=== PATIENT | female | born 1945 | race Caucasian/White ===

== ENCOUNTER 2016-09-12 19:23 | Inpatient (IN) | payer MEDICARE, OTHER ==
[~2016-09-12] VITALS: Ht 160 cm; Wt 77.6 kg
--- NOTE | 2016-09-12 19:23 | NUR ---
Patient was BIBA and taken to bed 04 via gurney per EMS.
[2016-09-12] MEDS ORDERED: NACL 0.9% 1,000 ML IV ONE ×2 (19:29→21:15)
--- NOTE | 2016-09-12 19:30 | NUR ---
71/F biba from [facility] for evaluation of low hemoglobin. Per report from facility, hemoglobin was 6.7. Pt denies any pain at this time. AOX4, clear speech. Pt noted with a colostomy back with dark brown/black stool. Denies N/V/D. VSS.
[2016-09-12 19:32] VITALS: BP 112/63
--- NOTE | 2016-09-12 19:50 | NUR ---
X-Ray at bedside.
[2016-09-12 20:04] LABS: BASOPHILS # (AUTO) 0.2 K/uL (0.00-0.22); BASOPHILS % (AUTO) 3.2 % (0.0-2.0); EOSINOPHILS # (AUTO) 0.2 K/uL (0-0.4); EOSINOPHILS % (AUTO) 2.2 % (0.0-4.0); HEMOGLOBIN 8.2 g/dL (12.0-16.0); LYMPHOCYTES % (AUTO) 25.4 % (20.5-51.1); MEAN CORPUSCULAR HEMOGLOBIN 40 pg (27-31); MEAN CORPUSCULAR HGB CONC 38 g/dL (33-37); MEAN CORPUSCULAR VOLUME 106 fL (80-94); MONOCYTES # (AUTO) 0.6 K/uL (0.8-1.0); MONOCYTES % (AUTO) 7.4 % (1.7-9.3); NEUTROPHILS # (AUTO) 4.7 K/uL (1.8-7.7); NEUTROPHILS % (AUTO) 61.8 % (42.2-75.2); PLATELET COUNT (AUTO) 352 K/uL (140-450); RED BLOOD CELL COUNT(AUTO) 2.07 MIL/uL (4.20-5.40); RED CELL DISTRIBUTION WIDTH 15.3 % (11.6-13.7); WHITE BLOOD COUNT (AUTO) 7.7 K/uL (4.8-10.8)
--- NOTE | 2016-09-12 20:11 | NUR ---
Pt refused to have a urinary catheter inserted at this time. Dr. Agarwal made aware.
--- NOTE | 2016-09-12 20:19 | NUR ---
Dr. Agarwal at bedside for a hemocult testing of stool.
[2016-09-12 20:25] LABS: ALBUMIN 3.2 g/dL (3.4-5.0); ANION GAP 9.4 (8-16); CALCIUM 9.1 mg/dL (8.5-10.1); CARBON DIOXIDE 30.5 mmol/L (21-32); POTASSIUM 3.9 mmol/L (3.5-5.1); TOTAL BILIRUBIN 0.9 mg/dL (0.0-1.0); TOTAL PROTEIN, SERUM 6.5 g/dL (6.4-8.2)
[2016-09-12 20:26] LABS: INR 1.2 (0.8-1.2); PROTHROMBIN TIME 11.6 secs (10.8-13.4)
--- NOTE | 2016-09-12 20:29 | NUR ---
Per Lab, Lactic acid is 2.5; I made this known to Dr. Agarwal.
[2016-09-12 20:30] LABS: LACTIC ACID 2.5 mmol/L (0.4-2.0)
[2016-09-12] MEDS ORDERED: FERR325E14 PO (20:38)
[2016-09-12] MEDS ORDERED: ASCO500T45 PO (20:38)
[2016-09-12] MEDS ORDERED: VALS320T2 PO (20:38)
[2016-09-12] MEDS ORDERED: MAGN400S60 PO (20:38)
[2016-09-12] MEDS ORDERED: METF500T PO (20:38)
[2016-09-12] MEDS ORDERED: SIMV20TA1 PO (20:38)
[2016-09-12] MEDS ORDERED: RIVA20TA PO (20:38)
--- NOTE | 2016-09-12 20:40 | NUR ---
Patient appears to be resting comfortably in bed. Vital Signs within normal limits. Respirations even and unlabored. Pt provided with water. All needs met. Pt calm and no distress noted.
--- NOTE | 2016-09-12 20:57 | NUR ---
RECEIVED REPORT FROM [facility] FOR TRANSFER OF CARE.
--- NOTE | 2016-09-12 21:00 | NUR ---
Pt w/c assisted to bathroom. Urine hat collection device place. No urine was collected. Dr. Agarwal notified.
[2016-09-12] MEDS ORDERED: ONDANSETRON 4 MG/2 ML VIAL IVP PRN (21:10)
[2016-09-12] MEDS ORDERED: DOCUSATE SODIUM 100 MG GELCAP PO PRN (21:10)
[2016-09-12] MEDS ORDERED: ACETAMINOPHEN 325 MG TAB PO PRN (21:10)
[2016-09-12] MEDS ORDERED: DEXTROSE 50% 50 ML SYR IVP PRN (21:15)
[2016-09-12] MEDS ORDERED: INSULIN LISPRO SLIDING SCALE 100 UNITS/ML VIAL SUBQ PRN (21:15)
[2016-09-12] MEDS ORDERED: DEXT 5% / NACL 0.9% 500 ML IV ONE (21:20)
--- NOTE | 2016-09-12 21:22 | NUR ---
Patient will be admitted to care of Dr. Bell. Admited to TELE. Will go to room 124-A. Belongings list completed. Report to Denise DYKES.
[2016-09-12 21:55] VITALS: BP 111/51
--- NOTE | 2016-09-12 21:55 | NUR ---
Admitted from ER TO TELEMETRY UNIT, with chief complaint of LOW HEMOGLOBIN, 6.7 PER [facility] REPORT, 71 y/o ,Female, Cooperative, AWAKE, A/OX4. LUNGS CLEAR ON BILATERAL AUSCULTATION. COLOSTOMY BAG IN THE LEFT SIDE OF ABDOMEN DRAINING MINIMAL AMOUNT OF BLACKISH LIQUID STOOLS. WITH SCAR NOTED FROM HEALED ABDOMINAL WOUND, SLIGHT REDNESS NOTED AROUND STOMA OF COLOSTOMY BAG. DENIES PAIN 0/10. SINUS RHYTHM ON TELE MONITOR. oriented to call light, bed, phone,television, bathroom, smoking policy, visiting hours, procedures, ID bracelet on. Belongings list checked.
--- NOTE | 2016-09-12 22:00 | NUR ---
Patient's Plan of Care was discussed and reviewed with COMPLIANCE PARALEGAL: LADARIUS PARKER
[2016-09-12 22:06] LABS: CHOL/HDL RATIO 2.5 (1-4.5)
[2016-09-12 22:21] LABS: BILIRUBIN,DIRECT 0.2 mg/dL (0.0-0.3); FREE T4 (FREE THYROXINE) 0.94 ng/dL (0.76-1.46); MAGNESIUM 2.2 mg/dL (1.8-2.4); THYROID STIMULATING HORMONE 1.34 uIU/mL (0.34-3.76)
[2016-09-12 23:07] LABS: APPEARANCE,URINE CLEAR (CLEAR); BILIRUBIN,URINE NEGATIVE (NEGATIVE); BLOOD, URINE NEGATIVE (NEGATIVE); LEUKOCYTE ESTERASE ,URINE NEGATIVE (NEGATIVE); NITRITE, URINE NEGATIVE (NEGATIVE); PROTEIN,URINE NEGATIVE (NEGATIVE); UGLUCOSE NEGATIVE (NEGATIVE); UROBILINOGEN,URINE 0.2 EU/dL (0.2 - 1)
[2016-09-12 23:09] LABS: COLOR,URINE STRAW (YELLOW)
[2016-09-12 23:12] LABS: BACTERIA,URINE 2+ /HPF (None Seen); RBC,URINE 0-3 /HPF (0-5); SQUAMOUS EPITHELIAL CELL,UR 0-3 /LPF (0-3 (FEW))
--- NOTE | 2016-09-12 23:30 | NUR ---
US TECH CAME DID AND DID US OF BILATERAL LOWER EXTREMITIES TO CHECK FOR DVT.
[2016-09-13] VITALS: BP 110/50
--- NOTE | 2016-09-13 01:04 | NUR ---
UA SPECIMEN OBTAINED BY JANIA SABILLON FOR URINE TEST, SENT TO LAB.
[2016-09-13 04:00] VITALS: BP 109/58
--- NOTE | 2016-09-13 05:30 | NUR ---
STILL SLEEPING COMFORTABLY IN BED.
--- NOTE | 2016-09-13 07:00 | NUR ---
CONDITION REMAIN STABLE. STILL NPO EXCEPT MEDS. WILL ENDORSE TO AM NURSE FOR CONTINUITY OF CARE.
--- NOTE | 2016-09-13 07:25 | NUR ---
ENDORSED TO JANIA SUÁREZ FOR CONTINUITY OF CARE.
--- NOTE | 2016-09-13 07:25 | NUR ---
RECEIVED PT IN BED. ASLEEP, AROUSABLE TO VOICE. NO SOB NOTED. DENIES ANY PAIN OR DISCOMFORT AT THIS TIME. ALERT ORIENTEDX4. POSITIVE BOWEL SOUNDS NOTED ON FOUR QUADRANTS. PT AMBULATORY WITH STAND BY ASSIST. PT HAS A COLOSTOMY IN PLACE. SKIN INTACT. SAFETY PRECAUTION IN PLACE. CALL LIGHT WITHIN REACH.
[2016-09-13] MEDS: BLOOD GLUCOSE MONITORING 1 DEV DEV FS SCH ×4 (07:35→21:58)
[2016-09-13 08:00] VITALS: BP 109/59
[2016-09-13] MEDS: VALSARTAN 80 MG TAB PO SCH (09:00)
[2016-09-13] MEDS: ASCORBIC ACID 500 MG TAB PO SCH ×2 (09:01→20:38)
[2016-09-13] MEDS: MAGNESIUM HYDROXIDE 2400 MG/30 ML UDC PO SCH ×2 (09:01→20:37)
[2016-09-13] MEDS: PANTOPRAZOLE 40 MG TABEC PO SCH (09:01)
[2016-09-13] MEDS: FERROUS SULFATE 325 MG TABEC PO SCH ×3 (09:01→17:44)
--- NOTE | 2016-09-13 09:09 | NUR ---
PATIENT HAS BEEN SCREENED AND CATEGORIZED MODERATE NUTRITION RISK. PATIENT WILL BE SEEN WITHIN 3-5 DAYS OF ADMISSION. 09/15/16-09/17/[address]
--- NOTE | 2016-09-13 09:11 | NUR ---
Review faxed to [facility] at [phone], Claudia at [phone]
--- NOTE | 2016-09-13 09:30 | NUR ---
DR. FLOR CAME TO SEE PT WITH ORDERS MADE AND CARRIED OUT.
[2016-09-13] MEDS: NACL 0.9% 1,000 ML IV SCH ×2 (10:41→20:36)
--- NOTE | 2016-09-13 12:26 | NUR ---
DR. SWAIN CAME TO SEE PT.
--- NOTE | 2016-09-13 12:29 | NUR ---
STOOL SPECIMEN OBTAINED FOR STOOL OCCULT BLOOD SENT TO LAB.
[2016-09-13] MEDS: LACTULOSE 20 GM/30 ML UDC PO SCH ×2 (13:32→17:44)
[2016-09-13] MEDS: SENNA 8.6 MG TAB PO SCH ×3 (13:33→20:37)
--- NOTE | 2016-09-13 13:46 | NUR ---
PT SIGNED DISCLOSURE OF HEALTH INFORMATION FORM. VERBALIZED UNDERSTANDING. COPY GIVEN TO PT PER HER REQUEST.
[2016-09-13] MEDS ORDERED: BOWEL EVACUANT DRINK 4,000 ML PDS PO SCH (15:00)
--- NOTE | 2016-09-13 16:43 | NUR ---
PT VERBALIZED UNDERSTANDING REGARDING THE EGD AND COLONOSCOPY PROCEDURE THAT DR. SWAIN DISCUSSED WITH HER EARLIER AND SIGNED THE INFORMED CONSENT.
--- NOTE | 2016-09-13 16:43 | NUR ---
CONSENT IN TO CHART.
[2016-09-13 18:00] VITALS: BP 110/64
[2016-09-13] MEDS ORDERED: MAGNESIUM CITRATE 300 ML BTL PO SCH (19:00)
--- NOTE | 2016-09-13 19:25 | NUR ---
PT KEPT CLEAN DRY AND COMFORTABLE, NEEDS ATTENDED. ENDORSED TO NEXT SHIFT FOR CONTINUITY OF CARE.
[2016-09-13] MEDS: SIMVASTATIN 20 MG TAB PO SCH (20:37)
[2016-09-13] MEDS: METOCLOPRAMIDE 10 MG/2 ML INJ VIAL IVP SCH (20:37)
--- NOTE | 2016-09-13 20:48 | NUR ---
PM MEDS ADMINISTERED, PATIENT TOLERATED WELL, CALL LIGHT WITHIN REACH. WILL CONTINUE TO MONITOR.
[2016-09-14] VITALS: BP 122/56
--- NOTE | 2016-09-14 00:34 | NUR ---
VITAL SIGNS STABLE, PATIENT RESTING IN BED, COLOSTOMY BAG LEAKING, REMOVED, CLEANED SKIN AND STOMA, APPLIED NEW BAG, CALL LIGHT WITHIN REACH. WILL CONTINUE TO MONITOR.
--- NOTE | 2016-09-14 02:30 | NUR ---
PATIENT SLEEPING COMFORTABLE, NO SOB OR SIGN OF DISTRESS AT THIS TIME, CALL LIGHT WITHIN REACH. WILL CONTINUE TO MONITOR.
--- NOTE | 2016-09-14 05:00 | NUR ---
PATIENT SLEEPING, NO SOB OR SIGN OF DISTRESS, CALL LIGHT WITHIN REACH. WILL CONTINUE TO MONITOR.
[2016-09-14] MEDS: NACL 0.9% 1,000 ML IV SCH ×2 (06:09→09:43)
[2016-09-14] MEDS: BLOOD GLUCOSE MONITORING 1 DEV DEV FS SCH ×4 (06:29→22:00)
[2016-09-14 07:06] LABS: MEAN CORPUSCULAR HEMOGLOBIN 50 pg (27-31); MEAN CORPUSCULAR HGB CONC 43 g/dL (33-37); MEAN CORPUSCULAR VOLUME 117 fL (80-94); PLATELET COUNT (AUTO) 275 K/uL (140-450); RED BLOOD CELL COUNT(AUTO) 1.33 MIL/uL (4.20-5.40); RED CELL DISTRIBUTION WIDTH 15.4 % (11.6-13.7)
[2016-09-14 07:15] LABS: HEMOGLOBIN 6.7 g/dL (12.0-16.0)
[2016-09-14 07:16] LABS: HEMATOCRIT 15.6 % (36-48)
[2016-09-14 07:19] LABS: ANION GAP 8.3 (8-16); CALCIUM 8.6 mg/dL (8.5-10.1); CARBON DIOXIDE 28.6 mmol/L (21-32); CREATININE 0.7 mg/dL (0.6-1.3); POTASSIUM 3.9 mmol/L (3.5-5.1)
[2016-09-14 07:28] LABS: NEUTROPHILS % (MANUAL) 63 (43-65)
[2016-09-14 07:29] LABS: EOSINOPHILS % (MANUAL) 6 % (0-4); LYMPHOCYTES % (MANUAL) 24 % (20-46); MONOCYTES % (MANUAL) 7 % (5-12)
[2016-09-14 07:30] LABS: ANISOCYTOSIS 1+; HYPOCHROMASIA 1+; POIKILOCYTOSIS 1+; POLYCHROMASIA 1+; ROULEAU 1+; TEAR DROP CELLS 1+
--- NOTE | 2016-09-14 07:30 | NUR ---
RECEIVED CRITICAL HGB 6.[address] FLOR, RECEIVED ORDER FOR TYPE AND CROSS AND TRANSFUSE 2 UNITS OF PACKED CELLS, ORDERS PUT IT, ENDORSED PATIENT TO DAY RN AT BEDSIDE, PATIENT IN STABLE CONDITION.
--- NOTE | 2016-09-14 07:31 | NUR ---
PT AWAKE AND ALERT, NO SIGNS OF ACUTE DISTRESS. BREATHING EVEN AND UNLABORED BILATERALLY, BOWEL SOUNDS PRESENT IN ALL FOUR QUADRANTS, NO ABDOMINAL DISTENTION, BLADDER CONTINENCE, SKIN INTACT WITH COLOSTOMY BAG IN PLACE WITH LIQUID OUTPUT DARK BROWN IN COLOR, NO REDNESS AROUND STOMA, PATIENT DENIES PAIN, AMBULATORY WITH ASSIST, IV PATENT NO REDNESS AROUND SITE, BED IN LOW POSITION WITH BILATERAL HALF SIDE RAILS UP, CALL LIGHT WITHIN REACH.
[2016-09-14 08:00] VITALS: BP 138/63
[2016-09-14] MEDS: VALSARTAN 80 MG TAB PO SCH (09:00)
[2016-09-14] MEDS: FERROUS SULFATE 325 MG TABEC PO SCH ×3 (09:00→16:48)
[2016-09-14] MEDS: LACTULOSE 20 GM/30 ML UDC PO SCH ×3 (09:00→17:00)
[2016-09-14] MEDS: MAGNESIUM HYDROXIDE 2400 MG/30 ML UDC PO SCH ×2 (09:00→21:00)
[2016-09-14] MEDS: ASCORBIC ACID 500 MG TAB PO SCH ×2 (09:00→21:00)
[2016-09-14] MEDS: PANTOPRAZOLE 40 MG TABEC PO SCH (09:00)
[2016-09-14] MEDS: SENNA 8.6 MG TAB PO SCH ×4 (09:00→21:00)
[2016-09-14] MEDS: METOCLOPRAMIDE 10 MG/2 ML INJ VIAL IVP SCH (09:43)
--- NOTE | 2016-09-14 11:13 | NUR ---
NOTED PT'S COLOSTOMY BAG WITH LIQUID DARK STOOL, EMPTIED 60ML. PT NO C/O PAIN, OR SIGNS OF ACUTE DISTRESS. CALLED BLOOD BANK AND WAS NOTIFIED BLOOD WILL BE READY IN 15 MINS. PT AWARE.
--- NOTE | 2016-09-14 11:36 | NUR ---
FAXED [place]CURRENT REVIEW TO [facility] [place] [phone] PHONE ABHINAV [phone]
--- NOTE | 2016-09-14 12:20 | NUR ---
VERIFIED BLOOD WITH JACKSON RN, PRE VITALS TAKEN AND NOTED. NO SIGNS OF FEVER, PATIENT DENIES PAIN.
--- NOTE | 2016-09-14 12:24 | NUR ---
STARTED BLOOD TRANSFUSION.
--- NOTE | 2016-09-14 12:33 | NUR ---
REPORT GIVEN TO TG DYKES AND TAKEN TO OR FOR EGD AND COLONOSCOPY, PT NO SIGNS OF ACUTE DISTRESS, AWAKE AND ALERT WITH BLOOD TRANSFUSING, NO ADVERSE EFFECTS NOTED AT THIS TIME.
[2016-09-14] MEDS ORDERED: fentaNYL 0.05 MG/ML VIAL ONE (12:34)
[2016-09-14] MEDS ORDERED: diphenhydrAMINE 50 MG/ML VIAL ONE (12:34)
[2016-09-14] MEDS ORDERED: MIDAZOLAM 2 MG/2 ML VIAL ONE (12:34)
[2016-09-14] MEDS: MIDAZOLAM 2 MG/2 ML VIAL IVP ONE ×2 (12:49→14:30)
[2016-09-14] MEDS: fentaNYL 0.05 MG/ML VIAL IVP ONE ×2 (12:51→14:30)
--- NOTE | 2016-09-14 14:20 | NUR ---
PT BACK FROM OR, REPORT FROM TG DYKES, 3 POLYPS REMOVED FROM COLON, PT AWAKE AND ALERT, NO SIGNS OF ACUTE DISTRESS, BLOOD STILL TRANSFUSING. Addendum: 09/14/16 at 1831 by Tom Larsen RN [id number] - PT BACK FROM OR, REPORT FROM TG DYKES, S/P EGD COLONOSCOPY. PT AWAKE AND ALERT, NO SIGNS OF ACUTE DISTRESS, POST OP FINDINGS, GASTRITIS, 2 COLON POLYPS, BIOPSY ON COLON MASS. BLOOD STILL TRANSFUSING. NO ADVERSE REACTIONS NOTED. CONTINUE TO MONITOR.
[2016-09-14 15:10] LABS: FOLIC ACID 10.9 ng/mL (>3.0)
[2016-09-14 16:00] VITALS: BP 141/70
--- NOTE | 2016-09-14 17:40 | NUR ---
WAS SEEN BY DR. POWELL FOR CONSULT. NEW ORDERS RECEIVED. CT ABDOMEN PELVIS WITH CONTRAST. CONSENT OBTAINED. NOTED AND CARRIED OUT.
--- NOTE | 2016-09-14 19:03 | NUR ---
PT AWAKE AND ALERT, NO SIGNS OF ACUTE DISTRESS, WILL ENDORSE TO DIESEL ENGINE MECHANIC APPRENTICE NURSE FOR CONTINUITY OF CARE.
--- NOTE | 2016-09-14 19:15 | NUR ---
RECEIVE DPT IN STABLE CONDITION FROM AM NURSE. AWAKE, ALERT AND ORIENTED X4. MED SURG PT. NO C/O ANY DISCOMFORT NOR PAIN NOTED. 2ND UNIT PRBC STILL INFUSING ON THE LT FA#22. NO REACTION NOTED AT THIS TIME. KEPT NPO FOR CT ABDOMEN /PELVIS WITH IV CONTRAST . PT VERBALIZED UNDERSTANDING. CALL LIGHT PLACED WITHIN EASY REACH. WILL CONTINUE TO MONITOR.
--- NOTE | 2016-09-14 20:10 | NUR ---
2ND UNIT PRBC TRANSFUSION DONE. NO ANY REACTION TO BLOOD NOTED. VITAL SIGNS STABLE.
[2016-09-14] MEDS: SIMVASTATIN 20 MG TAB PO SCH (21:00)
--- NOTE | 2016-09-14 22:00 | NUR ---
COLOSTOMY BAG FULL. EMPTIED 2200ML OF LOOSE GREENISH STOOL. NO B;OOD NOTED.
--- NOTE | 2016-09-14 23:15 | NUR ---
PT FOR CT ABDOMEN /PELVIS WITH IV CONTRAST. JANIA LINDA CHARGE STARTED A NEW IV ACCESS LT AC#20. CALLED CT DEPT. TALKED TO ADAM TO LET HER KNOW THERE IS ALREADY A BIGGER IV LINE.
[2016-09-15] VITALS: BP 118/76
[2016-09-15] MEDS: METOCLOPRAMIDE 10 MG/2 ML INJ VIAL IVP SCH ×3 (01:48→20:48)
[2016-09-15] MEDS: NACL 0.9% 1,000 ML IV SCH ×4 (02:05→20:51)
--- NOTE | 2016-09-15 03:00 | NUR ---
PICKED UP BY WHEELCHAIR TO CT DEPT FOR CT ABDOMEN /PELVIS WITH CONTRAST.
--- NOTE | 2016-09-15 04:45 | NUR ---
BACK FROM CT DEPT. WILL FOLLOW UP RESULT OF DT ABDOMEN/PELVIS. Addendum: 09/15/16 at 0454 by Tanya Grimm RN CORRECTED , CT ABDOMEN /PELVIS WITH CONTRAST
[2016-09-15] MEDS: BLOOD GLUCOSE MONITORING 1 DEV DEV FS SCH ×4 (06:09→20:48)
--- NOTE | 2016-09-15 06:10 | NUR ---
BLOOD SUGAR WAS CHECKED THIS AM RESULT 112. NO INSULIN COVERAGE NEEDED.
[2016-09-15 06:58] LABS: MONOCYTES # (AUTO) 0.8 K/uL (0.8-1.0); MONOCYTES % (AUTO) 7.4 % (1.7-9.3)
[2016-09-15 07:02] LABS: ALBUMIN 2.8 g/dL (3.4-5.0); BILIRUBIN,DIRECT 0.2 mg/dL (0.0-0.3); TOTAL PROTEIN, SERUM 5.7 g/dL (6.4-8.2)
--- NOTE | 2016-09-15 07:20 | NUR ---
ENDORSED PT IN STABLE CONDITION TO AM NURSE.
--- NOTE | 2016-09-15 07:21 | NUR ---
PT AWAKE AND ALERT AND ORIENTED X4, NO SIGNS OF ACUTE DISTRESS, BREATHING EVEN AND UNLABORED BILATERALLY, BOWEL SOUNDS ACTIVE IN ALL 4 QUADRANTS NO ABDOMINAL DISTENTION, COLOSTOMY IN PLACE, STOMA RED WITH NO SIGNS OF INFECTION, AMBULATORY WITH ASSIST, BLADDER CONTINENCE, SKIN INTACT WITH ABDOMINAL SCARRING AND COLOSTOMY, IV LINE PATENT WITH NO SIGNS OF REDNESS, BED IN LOW POSITION WITH BILATERAL HALF SIDE RAILS UP, CALL LIGHT WITHIN REACH.
[2016-09-15 07:36] LABS: BASOPHILS # (AUTO) 0.1 K/uL (0.00-0.22); BASOPHILS % (AUTO) 1.1 % (0.0-2.0); EOSINOPHILS # (AUTO) 0.1 K/uL (0-0.4); HEMATOCRIT 31.1 % (36-48); LYMPHOCYTES # (AUTO) 1.1 K/uL (2.5-16.5); LYMPHOCYTES % (AUTO) 9.8 % (20.5-51.1); MEAN CORPUSCULAR HEMOGLOBIN 30 pg (27-31); MEAN CORPUSCULAR HGB CONC 32 g/dL (33-37); MEAN CORPUSCULAR VOLUME 92 fL (80-94); NEUTROPHILS # (AUTO) 9.2 K/uL (1.8-7.7); NEUTROPHILS % (AUTO) 80.7 % (42.2-75.2); PLATELET COUNT (AUTO) 298 K/uL (140-450); RED BLOOD CELL COUNT(AUTO) 3.37 MIL/uL (4.20-5.40); RED CELL DISTRIBUTION WIDTH 15.5 % (11.6-13.7); WHITE BLOOD COUNT (AUTO) 11.3 K/uL (4.8-10.8)
[2016-09-15 08:00] VITALS: BP 113/60
--- NOTE | 2016-09-15 09:01 | NUR ---
FAXED CONCURRENT REVIEW TO [facility] [place] [phone] PHONE ABHINAV [phone]
[2016-09-15] MEDS: VALSARTAN 80 MG TAB PO SCH (09:30)
[2016-09-15] MEDS: ASCORBIC ACID 500 MG TAB PO SCH ×2 (09:30→20:48)
[2016-09-15] MEDS: LACTULOSE 20 GM/30 ML UDC PO SCH ×3 (09:31→16:45)
[2016-09-15] MEDS: MAGNESIUM HYDROXIDE 2400 MG/30 ML UDC PO SCH ×2 (09:31→20:49)
[2016-09-15] MEDS: PANTOPRAZOLE 40 MG TABEC PO SCH (09:31)
[2016-09-15] MEDS: SENNA 8.6 MG TAB PO SCH ×4 (09:31→20:49)
[2016-09-15] MEDS: FERROUS SULFATE 325 MG TABEC PO SCH ×3 (09:31→16:14)
--- NOTE | 2016-09-15 11:02 | NUR ---
WAS SEEN BY DR FLOR, NEW LAB ORDERS RECEIVED, NOTED WILL CARRY OUT.
[2016-09-15 16:00] VITALS: BP 127/65
--- NOTE | 2016-09-15 16:30 | NUR ---
SPOKE WITH AL FROM MEDICAL RECORDS AT [facility]. VERBALIZED ALREADY FAXED PT'S CONSENT FOR MEDICAL RELEASE OF INFORMATION FROM PT. FAX [phone]. TO FOLLOW UP.
--- NOTE | 2016-09-15 19:04 | NUR ---
PT AWAKE AND ALERT, NO SIGNS OF ACUTE DISTRESS, BREATHING EVEN AND UNLABORED BILATERALLY, WILL ENDORSE TO ACOUSTICAL TILE PATTERNMAKER NURSE FOR CONTINUITY OF CARE.
--- NOTE | 2016-09-15 19:07 | NUR ---
PT AWAKE AND ALERT, NO SIGNS OF ACUTE DISTRESS. ENDORSED TO DEPUTY CLERK OF SUPERIOR COURT NURSE FOR CONTINUITY OF CARE.
--- NOTE | 2016-09-15 19:28 | NUR ---
RECEIVED FROM AM RN IN BED AWAKE AND JUST GOT BACK FROM RESTROOM. NO SOB. DENIES PAIN AT THIS TIME. CALL LIGHT WITH IN REACH. PT. ABLE TO VERBALIZE NEEDS WELL. CARE PLAN FOR THE NIGHT DISCUSSED WITH HER AND ENCOURAGED TO CALL FOR ANY HELP SHE MAY NEED.
[2016-09-15] MEDS: SIMVASTATIN 20 MG TAB PO SCH (20:48)
--- NOTE | 2016-09-15 20:50 | NUR ---
PT. REFUSED TO DRINK MEDICINE FOR CONSTIPATION RT SHE SAID" I AM ALREADY HAVING VERY SOFT STOOL. NO MORE"
--- NOTE | 2016-09-15 21:55 | NUR ---
STILL AWAKE AT THI STIME WATCHING TV. CALL LIGHT WITH IN REACH. ABLE TO VERBALIZE NEEDS WELL. NO SOB. DENIES ANY PAIN.
[2016-09-16 00:56] VITALS: BP 140/71
--- NOTE | 2016-09-16 01:04 | NUR ---
PT. STILL AWAKE AT THIS TIME. STATED THAT SHE WENT TO RESTROOM. ABLE TO AMBULATE WELL AROUND ROOM WITH OUT ASSISST. VERBALIZES WELL. NO COMPLAINTS OF NAUSEA AND VOMITING AT THIS TIME.
--- NOTE | 2016-09-16 03:00 | NUR ---
PT. SLEEPING. NO RESTLESSNESS NOTED. PT. ABLE TO USE CALL LIGHT FOR HELP.
--- NOTE | 2016-09-16 05:00 | NUR ---
SLEEPING GOOD. NO COMPLAINTS DONE . NO NOTED S/S OF GI BLEED.
[2016-09-16] MEDS: NACL 0.9% 1,000 ML IV SCH (05:50)
[2016-09-16] MEDS: BLOOD GLUCOSE MONITORING 1 DEV DEV FS SCH ×2 (05:51→11:30)
[2016-09-16 07:02] LABS: ANION GAP 9.7 (8-16); CALCIUM 9.1 mg/dL (8.5-10.1); CARBON DIOXIDE 29.2 mmol/L (21-32); CREATININE 0.7 mg/dL (0.6-1.3); POTASSIUM 3.9 mmol/L (3.5-5.1)
--- NOTE | 2016-09-16 07:34 | NUR ---
ENDORSED TO THE NEXT RN FOR CONTINUITY OF CARE SLEEPING BUT WAKES UP EASILY WHEN CALLED BY NAME.
--- NOTE | 2016-09-16 07:40 | NUR ---
REPORT RECEIVED FROM HUMANITIES COORDINATOR, PT SLEEPING QUIETLY, AROUSES EASILY BY VOICE, RESP EVEN UNLABORED ON ROOM AIR IN NAD, IVF INFUSING WELL, SITE CLEAR, COLOSTOMY BAG WITH LIGHT BROWN STOOL, NO BLOOD NOTED, PT DENIES ANY IMMEDIATE NEEDS, CALL RUELAS WITHIN REACH, ALL SAFETY MEASURES IN PLACE, WILL CONTINUE TO MONITOR.
[2016-09-16 07:46] LABS: BASOPHILS # (AUTO) 0.3 K/uL (0.00-0.22); BASOPHILS % (AUTO) 3.6 % (0.0-2.0); EOSINOPHILS # (AUTO) 0.2 K/uL (0-0.4); EOSINOPHILS % (AUTO) 2.7 % (0.0-4.0); HEMATOCRIT 31.1 % (36-48); HEMOGLOBIN 10.2 g/dL (12.0-16.0); LYMPHOCYTES # (AUTO) 1.8 K/uL (2.5-16.5); MEAN CORPUSCULAR HEMOGLOBIN 31 pg (27-31); MEAN CORPUSCULAR HGB CONC 33 g/dL (33-37); MEAN CORPUSCULAR VOLUME 95 fL (80-94); MONOCYTES # (AUTO) 0.7 K/uL (0.8-1.0); MONOCYTES % (AUTO) 9.4 % (1.7-9.3); NEUTROPHILS # (AUTO) 4.4 K/uL (1.8-7.7); NEUTROPHILS % (AUTO) 60.3 % (42.2-75.2); PLATELET COUNT (AUTO) 287 K/uL (140-450); RED BLOOD CELL COUNT(AUTO) 3.28 MIL/uL (4.20-5.40); RED CELL DISTRIBUTION WIDTH 15.4 % (11.6-13.7); WHITE BLOOD COUNT (AUTO) 7.4 K/uL (4.8-10.8)
[2016-09-16 08:00] VITALS: BP 145/81
[2016-09-16] MEDS: METOCLOPRAMIDE 10 MG/2 ML INJ VIAL IVP SCH (08:14)
[2016-09-16] MEDS: FERROUS SULFATE 325 MG TABEC PO SCH ×2 (08:15→12:52)
[2016-09-16] MEDS: ASCORBIC ACID 500 MG TAB PO SCH (08:15)
[2016-09-16] MEDS: VALSARTAN 80 MG TAB PO SCH (08:15)
[2016-09-16] MEDS: PANTOPRAZOLE 40 MG TABEC PO SCH (08:16)
[2016-09-16] MEDS: LACTULOSE 20 GM/30 ML UDC PO SCH ×2 (08:20→12:14)
[2016-09-16] MEDS: MAGNESIUM HYDROXIDE 2400 MG/30 ML UDC PO SCH (08:20)
[2016-09-16] MEDS: SENNA 8.6 MG TAB PO SCH ×2 (08:20→12:52)
--- NOTE | 2016-09-16 09:45 | NUR ---
PT UP TO BATHROOM WITH STEADY GAIT, NO C/O DIZZINESS OR LIGHT HEADEDNESS, DENIES PAIN OR DISCOMFORT, PT REFUSED SCHEDULED STOOL SOFTENERS STATES MY STOOL IS LOOSE TODAY, DENIES ANY IMMEDIATE NEEDS, IVF CONTINUE TO INFUSE WITHOUT PROBLEM, CALL RUELAS WITHIN REACH, SAFETY MEASURES IN PLACE, WILL CONTINUE TO MONITOR.
[2016-09-16 11:19] VITALS: BP 141/70
--- NOTE | 2016-09-16 11:40 | NUR ---
CALLED ABHINAV REGARDING PATIENT TRANSFER GAVE AUTH NUMBER [id number]. AND TRANSPORTATION IS [facility] PHONE # [phone].
--- NOTE | 2016-09-16 11:55 | NUR ---
DAUGHTER CALLED TO NOTIFY OF DC AND TRANSFER BACK TO [facility] [place], NO ANSWER, MESSAGE LEFT REQUESTING CALL BACK.
--- NOTE | 2016-09-16 11:56 | NUR ---
TRANSPORT ETA 4PM, PT MADE AWARE OF PLAN, PT UNDERSTANDS PLAN, DENIES IMMEDIATE NEEDS, CALL RUELAS REMAINS AT BEDSIDE, WILL CONTINUE TO MONITOR.
--- NOTE | 2016-09-16 14:59 | NUR ---
REPORT CALLED TO [facility], ALL QUESTIONS ASKED ANSWERED, ACCEPTING DR SOTO. TRANSPORT ETA 3:30PM
--- NOTE | 2016-09-16 15:25 | NUR ---
REPORT GIVEN TO TRANSPORT STAFF, DC INSTRUCTION GIVEN AND EXPLAINED TO PT, PT VERBALIZED FULL UNDERSTANDING, IV DC'D, CATH TIP INTACT, BLEEDING CONTROLLED, TRANSFER BACK TO [facility] NOW.
[2016-09-16 15:32] VITALS: BP 150/89
== END 2016-09-16 15:30 | DRG 375 ==
LOC: MED 19:23 → MTU 21:13
PROVIDERS: ADMIT Hospitalist; ATTEND Hospitalist
PROC: 30233N1 Transfusion of Nonautologous Red Blood Cells into Peripheral Vein, Percutaneous Approach (ICD-10-PCS; 2016-09-14)
PROC: 0DBG8ZZ Excision of Left Large Intestine, Via Natural or Artificial Opening Endoscopic (ICD-10-PCS; principal; 2016-09-14 12:00)
PROC: 0DBG8ZZ Excision of Left Large Intestine, Via Natural or Artificial Opening Endoscopic (ICD-10-PCS; 2016-09-14 12:00)
PROC: 0DB68ZX Excision of Stomach, Via Natural or Artificial Opening Endoscopic, Diagnostic (ICD-10-PCS; 2016-09-14 12:00)
PROC: 0DBL8ZZ Excision of Transverse Colon, Via Natural or Artificial Opening Endoscopic (ICD-10-PCS; 2016-09-14 12:00)
PROC: 0DBH8ZX Excision of Cecum, Via Natural or Artificial Opening Endoscopic, Diagnostic (ICD-10-PCS; 2016-09-14 12:00)
DX: C18.2 Malignant neoplasm of ascending colon (principal); K92.2 Gastrointestinal hemorrhage, unspecified; D64.9 Anemia, unspecified; E11.9 Type 2 diabetes mellitus without complications; I10 Essential (primary) hypertension; D50.0 Iron deficiency anemia secondary to blood loss (chronic); K22.70 Barrett's esophagus without dysplasia; K27.9 Peptic ulcer, site unspecified, unspecified as acute or chronic, without hemorrhage or perforation; K29.60 Other gastritis without bleeding; K57.90 Diverticulosis of intestine, part unspecified, without perforation or abscess without bleeding; E66.01 Morbid (severe) obesity due to excess calories; E78.5 Hyperlipidemia, unspecified; Z79.01 Long term (current) use of anticoagulants; Z88.6 Allergy status to analgesic agent; Z88.1 Allergy status to other antibiotic agents; Z88.0 Allergy status to penicillin; Z88.7 Allergy status to serum and vaccine; Z85.038 Personal history of other malignant neoplasm of large intestine; Z98.890 Other specified postprocedural states; Z93.3 Colostomy status; Z68.30 Body mass index [BMI] 30.0-30.9, adult; Z86.718 Personal history of other venous thrombosis and embolism; Z79.899 Other long term (current) drug therapy
CPT/HCPCS: 36415; 44388; 45381; 71010; 80048; 80053; 80076; 81001; 82140; 82150; 82248; 82272; 82378; 82607; 82746; 82948; 83036; 83540; 83605; 83690; 83735; 83880; 84100; 84439; 84443; 84484; 85025; 85045; 85610; 86677; 86886; 86900; 86901; 86920; 87040; 87081; 87086; 93005; 93925; 93970; 96360; 99285; C1758; J1200; J1815; J2250; J2765; J3010; J7030; P9016; Q0092; Q9967